=== PATIENT | male | born 1950 | race Caucasian/White ===

== ENCOUNTER → 2017-04-01 | Day surgery (SDC) | payer BC ==
[2017-03-26 13:12] LABS: BASO % 0.5 %; BASO ABS # 0.03 K/uL (0-0.2); COMPLETE YES; EOS % 1.6 %; HEMATOCRIT 38.8 % (42-52); IG% 0.3 %; LYMPH % 40.8 %; LYMPH ABS # 2.52 K/uL (1.2-3.4); MEAN CELL VOLUME 86.8 fL (80-100); MEAN CORPUSCULAR HEMOGLOBIN 29.1 pg (25-34); MEAN CORPUSCULAR HGB CONC 33.5 g/dl (32-36); MEAN PLATELET VOLUME 10.7 fL (7.4-10.4); MONO % 7.3 %; NEUT % 49.5 %; PLATELET COUNT 243 K/uL (130-400); RED BLOOD COUNT 4.47 M/uL (4.7-6.1); WHITE BLOOD COUNT 6.17 K/uL (4.8-10.8)
[2017-03-26 13:26] LABS: BLOOD UREA NITROGEN 7 mg/dl (7-18); BUN/CREATININE RATIO 9.2 (10-20); CALCIUM 8.9 mg/dl (8.5-10.1); CARBON DIOXIDE 32 mmol/L (21-32); CHLORIDE 101 mmol/L (98-107); CREATININE 0.77 mg/dl (0.60-1.40); GLUCOSE 82 mg/dl (70-99); POTASSIUM 3.7 mmol/L (3.5-5.1); SODIUM 137 mmol/L (136-145)
[2017-03-29 09:23] VITALS: Ht 182.9 cm; Wt 106.8 kg
[~2017-04-01] VITALS: Ht 182.9 cm; Wt 106.8 kg
[~2017-04-01] MED LIST: ACET-1256 PO; ALUMSUS2 PO; AMLO5TAB4 PO; ATROPINE SULFATE 0.1 MG/ML 5ML SYR IV PRN; BIOT10TA2 PO; BSP5 PO; CALC1CHW71 PO; CHOLCAP5 PO; CLINDAMYCIN PHOS 150 MG/ML 2 ML VIAL IV SCH; DALF10TA PO; DEXAMETHASONE SOD INJ 4 MG/ML VIAL ONE; EpHEDrine SULFATE INJ 50 MG/ML AMP IV PRN; EpHEDrine SULFATE INJ 50 MG/ML AMP ONE; EpINEphrine INJ 1MG/ML AMP 1 MG/ML AMP ONE; FENTANYL CITRATE INJ 50 MCG/1 ML 2 ML VIAL IV PRN; FENTANYL CITRATE INJ 50 MCG/1 ML 2 ML VIAL ONE; HYDR-5688 PO; KETOROLAC TROMETHAMINE 30 MG/ML VIAL ONE; LACTATED RINGER'S 1000ML 1,000 ML IV SCH; LIDOCAINE HCL 2% 2 ML VIAL (20MG/ML) ONE; LSX20 PO; METO25TA56 PO; MIDAZOLAM HCL 1 MG/ML 2ML VIAL ONE; MULT-506 PO; ONDANSETRON INJ 2 MG/ML 2 ML VIAL IV PRN; ONDANSETRON INJ 2 MG/ML 2 ML VIAL ONE; OXYCODONE/ACETAMINOPHEN 5-325 TAB PO PRN; PEGI15IN SQ; PROPOFOL IV EMULSION 10 MG/ML 20 ML VIAL IV ONE; ROPIVACAINE 0.5% 5 MG/ML 30 ML VIAL ONE; SODIUM CHLORIDE 0.9% 1000ML 1,000 ML IV SCH; TAPE1TAB10 PO; TAPE50TA PO; VTMB12 PO
--- NOTE | 2017-04-01 06:44 | History & Physical Bridge - [place] ---
H&P Re-Evaluation Bridge Note: I have examined the patient, reviewed the History & Physical and in the interval since the performance of the History & Physical I have noted the following changes of clinical significance: No changes noted
--- NOTE | 2017-04-01 07:44 | Discharge Instructions-SurgCtr ---
Discharge Instructions Date of Service Apr 01, 2017. Visit Reason for Visit: Left Knee Loose Body, Pain Discharge Discharge Diagnosis / Problem: SAME ABOVE Discharge Goals Goal(s): Decrease discomfort, Improve function Activity Recommendations Activity Limitations: as noted below Lifting Limitations: gradually increase as tolerated Exercise/Sports Limitations: until after follow-up appointment Shower/Bathe: tomorrow Anesthesia . Post Anesthesia Instructions: If you have had General Anesthesia or IV Sedation: * Do not drive today. * Resume driving when surgeon permits. * Do not make important decisions or sign legal documents today. * Call surgeon for: 1. Temperature elevations greater than 101 degrees F. 2. Uncontrollable pain. 3. Excessive bleeding. 4. Persistent nausea and vomiting. 5. Medication intolerance (nausea, vomiting or rash). * For nausea and vomiting use only clear liquids such as: tea, soda, bouillon until nausea subsides, then gradually increase diet as tolerated. * If you have any concerns or questions, call your surgeon's office. If physician is unavailable and it is an emergency, call 911 or go to the nearest emergency room. . Instructions / Follow-Up Instructions / Follow-Up MEDICATIONS: * Resume previous medications unless instructed otherwise by your surgeon. * Always take pain medication on a full stomach or with food to avoid upset stomach. * Do not drink alcohol or drive while taking narcotics. * Ibuprofen or Tylenol may be taken if narcotic not needed. SPECIAL CARE INSTRUCTIONS: __ None _X_ Keep extremity elevated and iced x 48 hours; apply ice 20-30 minutes 8-10 times/day. May remove at night. __ Crutches __ May discard when able __ Brace/Post-op shoe __ 24 hrs/day __ Remove at night _X_ Dressing __ Maintain until seen in office, may shower with plastic over site _X_ Remove dressings in 24-48 hours and then may shower _X_ Cover incisions with band-aids after showering __ Do not remove steri-strips START PHYSICAL THERAPY IN 5-7 DAYS FROM THE DAY OF SURGERY. YOUR PRESCRIPTION HAS BEEN PROVIDED Call physician if chills or temperature rises above 102 degrees or pain unrelieved by prescribed pain medications. Office [phone] Diet Recommendations Home Diet: resume previous diet Procedures Procedures Performed: Left Knee Arthroscopy, Loose Body Removal Pending Studies Studies pending at discharge: no Medical Emergencies . Who to Call and When: Medical Emergencies: If at any time you feel your situation is an emergency, please call 911 immediately. . Non-Emergent Contact Non-Emergency issues call your: Primary Care Provider . . "Provider Documentation" section prepared by Asim Chong. .
--- NOTE | 2017-04-01 08:00 | OPERATIVE REPORT ---
DATE OF OPERATION: 04/01/2017 PREOPERATIVE DIAGNOSIS: Loose body metal anchor in the left knee with medial meniscal tear and chondromalacia. POSTOPERATIVE DIAGNOSIS: Same. PROCEDURE: Left knee arthroscopy to include partial medial meniscectomy, chondroplasty and removal of a displaced metal anchor. SURGEON: Dr. Asim Bowser. MUSEUM PREPARATOR: Asim Chong PA-C, whose assistance was necessary for positioning of the leg and helping with arthroscopic instrumentation. ANESTHESIA: General. COMPLICATIONS: None. CONDITION: Stable to PACU. INDICATIONS: Kevin is a pleasant 66-year-old male who underwent a quad repair about 20 years ago. Metal anchors were used in the patella at the time. One of the anchors had become loose and it was palpable beneath the skin at the patella for several years. Then 1 day, the mass was gone and he began having knee pain. I brought him in for x-rays and radiographs showed a displaced metal anchor in the medial compartment of the knee. He elected to undergo arthroscopy for removal of loose body and partial meniscectomy and chondroplasty. OPERATION AND FINDINGS: On 04/01/2017 he arrived at [facility] for the above procedure. He was seen in the preoperative holding area and the operative extremity was identified and signed. He was given preoperative antibiotics, taken back to the operating room, laid on the table in supine position and put under general anesthesia. The left knee was then prepped and draped in sterile fashion. Time-out was done and the patient and operative extremity was properly identified. A scope was placed in the lateral parapatellar portal. Diagnostic arthroscopy showed no loose bodies in the suprapatellar pouch. There was grade 4 chondral changes on the undersurface of the patella and the lateral trochlea. The scope was brought into the medial compartment. A medial parapatellar portal was made under direct visualization. There was a flipped tear of the posterior horn of the medial meniscus. A shaver and a biter were used to remove the unstable portions of the meniscus back to stable margins. Right behind the horn of the meniscus the metal anchor was easily identified. Suction was used and anchor was brought into the medial compartment and a grasper was used to remove it through the medial portal. Pictures were taken. A shaver was then used to complete a chondroplasty of grade 3 chondral changes off the distal medial femoral condyle. The scope was brought into the trochlea. ACL and PCL were intact. The scope was brought into the lateral compartment and there was no evidence of meniscal or chondral damage. The scope was placed in the contralateral portal. Repeat diagnostic arthroscopy showed no additional pathology. Arthroscopic instruments were removed from the knee. Portal sites were closed with 3-0 nylon. The knee was then injected with 30 mL of ropivacaine, morphine and Toradol. He was then placed in a soft compressive dressing, extubated, transferred to a [facility] and taken to the postanesthesia care unit in stable condition. He tolerated the procedure well. I attest to the content of the Intraoperative Record and any orders documented therein. Any exception s are noted below.
--- NOTE | 2017-04-01 08:29 | Anesthesia Progress Nt - [facility] ---
Anesthesia Post Op Note Date & Time Apr 01, 2017 at 08:29 Vital Signs Pain Intensity: 0 Vital Signs Past 12 Hours Date Time Temp Pulse Resp B/P (MAP) Pulse Ox O2 Delivery O2 Flow Rate FiO2 04/01/17 08:10 36.4 70 16 124/66 96 Room Air 04/01/17 08:07 68 14 96 04/01/17 08:07 68 14 04/01/17 08:06 126/78 04/01/17 08:02 66 12 04/01/17 08:02 66 12 96 04/01/17 08:01 125/60 04/01/17 07:57 68 12 98 04/01/17 07:57 69 12 04/01/17 07:56 66 13 04/01/17 07:56 36.2 80 14 143/67 98 Mask 5 04/01/17 07:56 66 13 125/65 99 04/01/17 07:51 70 12 123/67 99 04/01/17 07:51 71 12 04/01/17 07:46 75 14 04/01/17 07:46 71 14 129/66 100 04/01/17 07:42 143/67 04/01/17 06:28 36.6 67 18 149/79 (102) 100 Room Air Notes Mental Status: alert / awake / arousable, participated in evaluation Pt Amnestic to Procedure: Yes Nausea / Vomiting: adequately controlled Pain: adequately controlled Airway Patency, RR, SpO2: stable & adequate BP & HR: stable & adequate Hydration State: stable & adequate Anesthetic Complications: no major complications apparent
[2017-04-01 09:07] VITALS: BP 134/78; PULSE 76; O2SAT 96
--- NOTE | 2017-04-01 09:55 | [facility] Post Operative Brief Note ---
Immediate Operative Summary Operative Date Apr 01, 2017. Pre-Operative Diagnosis Left knee loose body Post-Operative Diagnosis Same as preop Procedure(s) Performed Left Knee Arthroscopy, Loose Body Removal Surgeon Dr. Bowser Content Management Consultant Surgeon(s) Asim Chong PA-C Estimated Blood Loss 5 mL Findings as above Specimens None Complication(s) None Disposition Recovery Room / PACU
== END | disposition home or self-care (01) ==
LOC: X.SURG 06:17
PROVIDERS: ATTEND Orthopaedic Surgery
DX: M23.222 Derangement of posterior horn of medial meniscus due to old tear or injury, left knee (principal); M94.262 Chondromalacia, left knee; M96.89 Other intraoperative and postprocedural complications and disorders of the musculoskeletal system; Y83.1 Surgical operation with implant of artificial internal device as the cause of abnormal reaction of the patient, or of later complication, without mention of misadventure at the time of the procedure; G35 Multiple sclerosis